=== PATIENT | female | born 2005 | race Caucasian/White ===

== ENCOUNTER 2024-12-15 13:03 | Emergency (ER) | payer MEDICAID ==
[~2024-12-15] VITALS: Ht 162.6 cm; Wt 54.0 kg
[2024-12-15 13:10] VITALS: BP 115/78; TEMP 37.3; O2SAT 97
[2024-12-15 13:14] VITALS: PULSE 107; RESP 20; O2SAT 99
[2024-12-15] MEDS: IBUPROFEN 600MG TABLET PO ONE (15:55)
[2024-12-15] MEDS: PANTOPRAZOLE 40MG DR TABLET PO ONE (15:55)
[2024-12-15] MEDS: FAMOTIDINE 20MG TABLET PO ONE (15:55)
== END 2024-12-15 17:40 | disposition left against medical advice (07) ==
LOC: ER 13:03
DX: R12 Heartburn (principal); R03.0 Elevated blood-pressure reading, without diagnosis of hypertension
CPT/HCPCS: 81025; 99284